=== PATIENT | male | born 1945 | race Caucasian/White ===

== ENCOUNTER 2024-06-14 11:01 | Day surgery (SDC) | payer OTHER ==
[2024-06-08 15:49] VITALS: BMI 22.8
[2024-06-14] MEDS ORDERED: NEO/POLYMYX B SULF/DEXAMETH OPHTHALMIC 5ML BOTTLE ONE (11:07)
[2024-06-14] MEDS ORDERED: BSS (NA/CA/MG/K) BALANCED SALT SOLUTION OPHTH SOLN 15 ML BOTTLE ONE (11:07)
[2024-06-14] MEDS ORDERED: TETRACAINE 0.5% OPHTH SOLN 2 ML BOTTLE ONE (11:07)
[2024-06-14] MEDS ORDERED: LIDOCAINE 1% P/F 10 MG/ML VIAL ONE (11:07)
[2024-06-14] MEDS ORDERED: CARBACHOL 0.01% INTRA-OCULAR 1.5 ML VIAL ONE (11:07)
[2024-06-14 11:45] VITALS: RESP 16; TEMP 97.1
[2024-06-14] MEDS: CYCLOPENTOLATE 2% OPHTH SOLN 2 ML BOTTLE ONE (11:50)
[2024-06-14] MEDS: TROPICAMIDE 1% OPHTH SOLN 15 ML BOTTLE ONE (11:50)
[2024-06-14] MEDS: PHENYLEPHRINE 2.5% OPTHALMIC DROP 2ML BOTTLE ONE (11:50)
[2024-06-14] MEDS: CIPROFLOXACIN 0.3% EYE DROPS 5 ML BOTTLE ONE (11:50)
[2024-06-14] MEDS ORDERED: MIDAZOLAM HCL 2 MG/2 ML SINGLE DOSE VIAL ONE (12:07)
[2024-06-14 14:10] VITALS: BP 138/71; PULSE 64
== END 2024-06-14 14:10 | disposition home or self-care (01) ==
LOC: FASU 11:01
PROVIDERS: ATTEND Ophthalmology
PROC: 08NC3ZZ Release Right Iris, Percutaneous Approach (ICD-10-PCS; 2024-06-14)
PROC: 08RJ3JZ Replacement of Right Lens with Synthetic Substitute, Percutaneous Approach (ICD-10-PCS; principal; 2024-06-14 13:06)
DX: H26.8 Other specified cataract (principal); H21.541 Posterior synechiae (iris), right eye
CPT/HCPCS: 66984; V2632